=== PATIENT | female | born 1975 | race American Indian/Alaskan Native ===

== ENCOUNTER 2021-01-19 15:13 | Emergency (ER) | payer BC ==
[2021-01-19 17:11] VITALS: BP 112/82
--- NOTE | 2021-01-19 17:51 | Event Note ---
ED Screening Note Date of service: 01/19/21 Time: 17:49 ED Screening Note: 45-year-old female with a past medical history of pulmonary embolus currently taking warfarin presents to the ER today via EMS with complaints of feeling dizzy and lightheaded and feeling like she is about to pass out while standing at work today. She reports associated shortness of breath while she was standing. She denied any chest pain, headache, diaphoresis, nausea, vomiting or abdominal pain. She states that she did have a cold on Sunday but is getting better. She denies any coughing. She denies any vision changes or slurred speech. She denies any focal weakness. Patient admits that she has missed 3 days of her warfarin because of her not feeling well. She denies any head injury/\. This initial assessment/diagnostic orders/clinical plan/treatment(s) is/are subject to change based on patients health status, clinical progression and re- assessment by fellow clinical providers in the ED. Further treatment and workup at subsequent clinical providers discretion. Patient/guardian urged not to elope from the ED as their condition may be serious if not clinically assessed and managed. Initial orders include: Labs/EKG/chest x-ray
--- NOTE | 2021-01-19 18:19 | XRay Report ---
CHEST 2 VIEWS INDICATION / CLINICAL INFORMATION: sob. Dyspnea FINDINGS: SUPPORT DEVICES: None. HEART / MEDIASTINUM: No significant abnormality. LUNGS / PLEURA: No significant pulmonary or pleural abnormality. No pneumothorax. ADDITIONAL FINDINGS: No significant additional findings. IMPRESSION: 1. No acute findings. Signer Name: Shar Amado MD Signed: 01/19/2021 6:14 PM Workstation Name: [id number]
[2021-01-19 19:09] LABS: INR 1.13 (0.87-1.13)
[2021-01-19 19:13] LABS: Alanine Aminotransferase 12 units/L (7-56); Albumin 3.9 g/dL (3.9-5); BUN/Creatinine Ratio 10; Blood Urea Nitrogen 7 mg/dL (7-17); Calcium 8.4 mg/dL (8.4-10.2); Hemolysis Index 7
[2021-01-19 19:52] LABS: Bacteria,Urine 1+ /HPF (Negative); Bilirubin,Urine NEG (Negative); Blood,Urine LG (Negative); Color,Urine Yellow (Yellow); Hyaline Casts,Urine 4 /LPF; Mucus,Urine FEW /HPF; Urobilinogen,Urine < 2.0 mg/dL (<2.0)
[2021-01-19 20:52] LABS: Basophils % (Auto) 0.4 % (0.0-1.8); Hematocrit 33.3 % (30.3-42.9); Lymphocytes # (Auto) 0.8 K/mm3 (1.2-5.4); Lymphocytes % (Auto) 19.7 % (13.4-35.0); Mean Corpuscular HGB Conc 33 % (30-34); Mean Corpuscular Volume 75 fl (79-97); Monocytes # (Auto) 0.6 K/mm3 (0.0-0.8); Monocytes % (Auto) 15.3 % (0.0-7.3); Platelet Count 252 K/mm3 (140-440); Red Blood Count 4.44 M/mm3 (3.65-5.03); Red Cell Distribution Width 16.5 % (13.2-15.2)
--- NOTE | 2021-01-19 21:45 | Emergency Department Report ---
<HARI ORDONEZ III - Last Filed: 01/20/21 02:16> ED General Adult HPI - General Chief complaint: Dizziness Stated complaint: DIZZINESS Time Seen by Provider: 01/19/21 17:45 - Related Data Allergies Allergy/AdvReac Type Severity Reaction Status Date / Time No Known Allergies Allergy Unverified 01/19/21 17:05 ED Course - Reevaluation(s) Reevaluation #1: I reviewed the findings and management of this patient in real-time and I have personally seen and examined this patient and participated in the decision making for this patient with the midlevel. Patient is a 45-year-old female that comes emergency room for dizziness. Patient states that she has been off for Coumadin since not feeling well. Patient complains of upper respiratory infection. Patient states her upper respiratory fraction is improving. Patient states she came in to be checked because she is having dizziness upon getting out of the chair. Patient states that these are the same symptoms she has had when she was diagnosed with a large PE. Patient states that she has not been able to take Coumadin due to not feeling well. I examined the patient. Patient's neuro exam is intact. Patient CV exam shows a normal S1-S2. Patient's lung sounds are clear to auscultation. Patient is amatory without difficulty. Patient will have a CT scan of the head and a D-dimer. If the D-dimer is positive, the patient will have a CTA of the lungs to rule out a PE since the patient is subtherapeutic. 01/19/21 21:37 Reevaluation #2: I discussed all results and clinical findings with patient. I discussed plan of care with patient. Patient agrees with plan of care. Patient is stable for discharge. Patient will be discharged home. Patient given discharge instructions. Patient voiced understanding of discharge instructions. Patient instructed to restart Coumadin and follow-up with her primary care in 2 to 3 days. Patient will require INR checks. 01/20/21 01:40 ED Medical Decision Making - Lab Data Result diagrams: 01/19/21 20:34 01/19/21 18:34 ED Disposition Clinical Impression: Dizziness on standing, Subtherapeutic anticoagulation, Noncompliance Disposition: DC-01 TO HOME OR SELFCARE Is pt being admited?: No Does the pt Need Aspirin: No Condition: Stable Instructions: Dizziness, [id number] Additional Instructions: Chest x-ray is negative chest CT is negative INR is 1.3 subtherapeutic. Take your medications as prescribed. Follow-up with your primary care provider in the next 2 to 3 days. Referrals: PRIMARY CARE, [Primary Care Provider] - 3-5 Days Rosita Hardy [Other] - 3-5 Days Forms: Work/School Release Form(ED) Time of Disposition: 02:20 <GURPREET HARRISON - Last Filed: 01/20/21 02:57> ED General Adult HPI - General Source: patient Mode of arrival: Ambulatory Limitations: No Limitations - History of Present Illness Initial comments: 45-year-old -Slov[place] female presents to the emergency room complaining of dizziness lightheadedness that feels like she is off balance. Patient reports that she had cold-like symptoms on Sunday. She denies any nasal congestion no ears feeling clogged no runny nose. Patient states that she does have some nausea no vomiting no headache. 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 Patient denies any fever no chills no shortness of breath. Patient states when she first was discovered she had a clot she was having the same symptoms of being off balance and dizziness. She states at that time she passed out. Patient reports she is only on warfarin. She has not been vaccinated and has not been Covid tested. She denies any chest pain. -: This afternoon Location: head Severity scale (0 -10): 4 Consistency: constant Improves with: none Worsens with: movement Associated Symptoms: nausea/vomiting (No vomiting). 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 Absent: respiratory distress, chest wall tenderness, accessory muscle use - Cardiovascular Cardiovascular Exam: Present: regular rate - Extremities Exam Extremities exam: Present: normal inspection - Back Exam Back exam: Present: normal inspection - Expanded Neurological Exam Expanded Neurological exam: Present: protecting the airway Patient oriented to: Present: person, place, time Cranial nerves: EOM's Intact: Normal, Gag Reflex: Normal, Tongue Deviation: Normal, Nystagmus: Normal, Facial Sensation: Normal, Facial Palsy with Forehead Movement: Normal, Facial Palsy without Forehead Movement: Normal Cerebellar function: Finger to Nose: Normal, Heel to Burton: Normal, Romberg: Normal Upper motor neuron: Marcin Neglect: Normal, Pronator Drift: Normal, Sensory Extinction: Normal Sensory exam: Upper Extremity Light Touch: Normal, Upper Extremity Pin Prick: Normal, Upper Extremity Temperature: Normal, UE 2 Point Discrimination: Normal, Lower Extremity Light Touch: Normal, Lower Extremity Pin Prick: Normal, Lower Extremity Temperature: Normal, LE 2 Point Discrimination: Normal Motor strength exam: RUE: 4, LUE: 4, RLE: 4, LLE: 4 Best Eye Response (Jackie): (4) open spontaneously Best Motor Response (Jackie): (6) obeys commands Best Verbal Response ([place]): (5) oriented Jackie Total: 15 - Psychiatric Psychiatric exam: Present: normal affect, normal mood - Skin Skin exam: Present: warm, dry, intact, normal color. Absent: rash ED Course Vital Signs 01/19/21 17:10 Temperature 99.6 F Pulse Rate 45 L Respiratory 20 Rate Blood Pressure 112/82 O2 Sat by Pulse 100 Oximetry ED Medical Decision Making - Lab Data Result diagrams: 01/19/21 20:34 01/19/21 18:34 - Radiology Data Radiology results: report reviewed [facility] [address] [place] [address] XRay Report Signed Patient: RYAN AGUERO MR#: [id number] : 1975 A cct:[id number] Age/Sex: 45 / F ADM Date: 01/19/21 Loc: ED Attending Dr: Ordering Physician: HENNA ANDERSON Date of Service: 01/19/21 Procedure(s): XR chest routine 2V Accession Number(s): [id number] cc: HENNA ANDERSON Fluoro Time In Minutes: CHEST 2 VIEWS INDICATION / CLINICAL INFORMATION: sob. Dyspnea FINDINGS: SUPPORT DEVICES: None. HEART / MEDIASTINUM: No significant abnormality. LUNGS / PLEURA: No significant pulmonary or pleural abnormality. No pneumothorax. ADDITIONAL FINDINGS: No significant additional findings. IMPRESSION: 1. No acute findings. Signer Name: Shar Amado MD Signed: 01/19/2021 6:14 PM Workstation Name: [id number] Transcribed By: BC Dictated By: Shar Amado MD Electronically Authenticated By: Shar Amado MD Signed Date/Time: 01/19/211813 DD/ 13 TD/TT: My Comment(s) [place] [address] Cat Scan Report Signed Patient: RYAN AGUERO MR#: [id number] : 1975 Acct:[id number] Age/Sex: 45 / F ADM Date: 01/19/21 Loc: ED Attending Dr: Ordering Physician: VIC BLANCHARD Date of Service: 01/19/21 Procedure(s): CT angio chest Accession Number(s): [id number] cc: VIC BLANCHARD CTA CHEST WITH CONTRAST INDICATION / CLINICAL INFORMATION: Dizziness, Elevated D-dimer. TECHNIQUE: Axial CT images were obtained through the chest after injection of 100 mL Omnipaque 350 IV contrast. 3 plane MIP and/or 3D reconstructions were produced. All CT scans at this location are performed using CT dose reduction for ALARA by means of automated exposure control. COMPARISON: None available. FINDINGS: PULMONARY ARTERIES: No pulmonary emboli. THORACIC AORTA: No significant abnormality. HEART: No significant abnormality. CORONARY ARTERY CALCIFICATION: None. MEDIASTINUM / GARTH: No significant abnormality. PLEURA: No pleural effusion. No pneumothorax. LUNGS: No acute air space or interstitial disease. ADDITIONAL FINDINGS: None. UPPER ABDOMEN: Gastric stapling procedure. No acute abnormality. SKELETAL STRUCTURES: No significant osseous abnormality. IMPRESSION: 1. No CT evidence for pulmonary embolism. 2. No acute findings. Signer Name: Arline Payne MD Signed: 01/20/2021 12:48 AM Workstation Name: [id number] Transcribed By: DT Dictated By: Federico Payne MD Electronically Authenticated By: Federico Payne MD Signed Date/Time: 01/20/2147 DD/ TD/TT: Print Cancel - Medical Decision Making 45-year-old -Slov[place] female presents to the emergency room complaining of dizziness lightheadedness that feels like she is off balance. Patient reports that she had cold-like symptoms on Sunday. She denies any nasal congestion no ears feeling clogged no runny nose. Patient states that she does have some nausea no vomiting no headache. 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 Patient denies any fever no chills no shortness of breath. Patient states when she first was discovered she had a clot she was having the same symptoms of being off balance and dizziness. She states at that time she passed out. Patient reports she is only on warfarin. She has not been vaccinated and has not been Covid tested. She denies any chest pain. Patient CBC within normal limits negative troponin no concern for urine. INR is 1.13. Discussed case with Dr. Menendez we would do a D-dimer. D-dimer is elevated at 569. CTA of chest has been ordered CTA of chest is negative for any pulmonary embolism. We will discharge patient home to follow-up with her primary care provider. Critical Care Time: Yes (35) Critical care attestation.: If time is entered above; I have spent that time in minutes in the direct care of this critically ill patient, excluding procedure time. ED Disposition Is pt being admited?: No Does the pt Need Aspirin: No
[2021-01-19 23:42] LABS: HCG Qualitative,Urine Negative (Negative)
--- NOTE | 2021-01-20 00:53 | Cat Scan Report ---
CTA CHEST WITH CONTRAST INDICATION / CLINICAL INFORMATION: Dizziness, Elevated D-dimer. TECHNIQUE: Axial CT images were obtained through the chest after injection of 100 mL Omnipaque 350 IV contrast. 3 plane MIP and/or 3D reconstructions were produced. All CT scans at this location are per formed using CT dose reduction for ALARA by means of automated exposure control. COMPARISON: None available. FINDINGS: PULMONARY ARTERIES: No pulmonary emboli. THORACIC AORTA: No significant abnormality. HEART: No significant abnormality. CORONARY ARTERY CALCIFICATION: None. MEDIASTINUM / GARTH: No significant abnormality. PLEURA: No pleural effusion. No pneumothorax. LUNGS: No acute air space or interstitial disease. ADDITIONAL FINDINGS: None. UPPER ABDOMEN: Gastric stapling procedure. No acute abnormality. SKELETAL STRUCTURES: No significant osseous abnormality. IMPRESSION: 1. No CT evidence for pulmonary embolism. 2. No acute findings. Signer Name: Arilne Payne MD Signed: 01/20/2021 12:48 AM Workstation Name: [id number]
--- NOTE | 2021-01-20 11:09 | Electrocardiograph Report ---
[facility] Test Date: 2021-01-19 Test Time: 17:55:25 Pat Name: RYAN AGUERO Department: Room: Gender: F Wick Tender: ARAM : 1975 Requested By: HENNA ANDERSON Order Number: [id number] Reading MD: Rachelle Antonio Measurements Intervals [place] Rate: 85 P: 30 ID: [id number] QRS: 15 QRSD: 102 T: 0 QT: 397 QTc: 473 Interpretive Statements Sinus rhythm Borderline T abnormalities, diffuse leads No previous ECG available for comparison Electronically Signed On 01-20-2021 11:09:24 EDT by Rachelle Antonio
== END 2021-01-20 01:50 | disposition home or self-care (01) ==
LOC: ED 15:13
DX: R42 Dizziness and giddiness (principal); Z91.14 Patient's other noncompliance with medication regimen
CPT/HCPCS: 36415; 71046; 71275; 80053; 81001; 81025; 83690; 84484; 85025; 85379; 85610; 93005; 99284; Q9967